=== PATIENT | female | born 1975 | race Caucasian/White ===

== ENCOUNTER 2018-02-14 05:35 | Day surgery (SDC) | payer BC ==
[~2018-02-14] VITALS: Ht 167.6 cm; Wt 60.3 kg
[2018-02-14 06:10] VITALS: BP 97/57; PULSE 51; TEMP 98.2
[2018-02-14] MEDS ORDERED: CELEXA10 MG PO (06:15)
[2018-02-14] MEDS ORDERED: KLONOPIN 0.5MG0.5 MG PO (06:16)
[2018-02-14] MEDS ORDERED: DAILY MULTIPLE1 T18 PO (06:16)
[2018-02-14 10:05] VITALS: BP 110/68; PULSE 74; TEMP 98.8
[2018-02-14 10:20] VITALS: BP 110/59; PULSE 50
[2018-02-14 10:35] VITALS: BP 100/51; PULSE 66
[2018-02-14 10:50] VITALS: BP 105/58; PULSE 58
[2018-02-14] MEDS ORDERED: ROXICODONE 55 MG/TAB PO (10:50)
== END 2018-02-14 11:40 | disposition home or self-care (01) ==
LOC: SDCO 05:35
DX: K43.9 Ventral hernia without obstruction or gangrene (principal); F32.9 Major depressive disorder, single episode, unspecified; Z87.891 Personal history of nicotine dependence
CPT/HCPCS: C1781; J0690; J1100; J1170; J1200; J1885; J2175; J2250; J2405; J2704; J2710; J3010; J7120